=== PATIENT | female | born 1935 | race Caucasian/White ===

== ENCOUNTER 2017-03-12 02:03 | Emergency (ER) | payer MEDICAID, OTHER ==
[~2017-03-12] VITALS: Ht 175.3 cm; Wt 61.2 kg
[2017-03-12 03:09] LABS: Basophils # (auto) 0.1 uL; Basophils % (auto) 1.1 % (0.0-2.0); Eosinophils # (auto) 0.1 uL; Eosinophils % (auto) 1.2 % (0.0-7.0); Hematocrit 37.7 % (36.0-46.0); Hemoglobin 12.4 g/dL (12.2-16.2); Lymphocytes # (auto) 1.6 uL; Lymphocytes % (auto) 26.5 % (10.0-50.0); Mean Corpuscular Hemoglobin 30.3 pg (28.0-32.0); Mean Corpuscular Hgb Conc. 32.9 g/dL (32.0-36.0); Mean Corpuscular Volume 92.2 fL (80.0-100.0); Monocytes # (auto) 0.4 uL; Monocytes % (auto) 5.7 % (0.0-12.0); Neutrophils # (auto) 4.1 uL; Neutrophils % (auto) 65.5 % (37.0-80.0); Nucleated Red Blood Cells % 0.1 %; Platelet Count (auto) 275 10^3/uL (140-450); Red Blood Cells 4.09 10^6/uL (4.0-5.20); Red Cell Distribution Width 14.7 % (11.8-14.3); White Blood Cell 6.2 10^3/uL (4.4-10.8)
[2017-03-12 03:24] LABS: INR 0.92 (0.9-1.15)
[2017-03-12 03:30] LABS: Albumin 3.4 g/dL (3.4-5.0); BUN/Creatinine Ratio 19.2; Bilirubin, Total 0.2 mg/dL (0.2-1.0); Calcium 9.4 mg/dL (8.5-10.1); Magnesium 2.1 mg/dL (1.6-2.6); Potassium 4.1 mmol/L (3.5-5.1); Total Protein 7.6 g/dL (6.4-8.2)
[2017-03-12] MEDS ORDERED: LORazepam 2MG/ML-1ML VIAL ONE (06:00)
[2017-03-12] MEDS ORDERED: diphenhdrAMINE HCL 50 MG/1 ML VL IV ONE (06:15)
[2017-03-12] MEDS ORDERED: LORazepam 2MG/ML-1ML VIAL IV ONE (06:15)
[2017-03-12 07:35] LABS: Urine Bacteria None Seen /hpf (None Seen)
[2017-03-12 08:28] LABS: Urine Specific Gravity 1.009 (1.001-1.035)
[2017-03-12 08:29] LABS: Urine Blood 1+ /uL (Negative); Urine WBC 0-1 /hpf (0 - 5)
[2017-03-12 09:20] VITALS: BP 171/90
== END 2017-03-12 09:42 | disposition home or self-care (01) ==
LOC: EDBD 02:03 → ER 02:08
DX: S09.8XXA Other specified injuries of head, initial encounter (principal); S50.812A Abrasion of left forearm, initial encounter; S50.311A Abrasion of right elbow, initial encounter; I10 Essential (primary) hypertension; E78.5 Hyperlipidemia, unspecified; E11.9 Type 2 diabetes mellitus without complications; Z90.710 Acquired absence of both cervix and uterus; Z87.891 Personal history of nicotine dependence; W01.0XXA Fall on same level from slipping, tripping and stumbling without subsequent striking against object, initial encounter; Y93.01 Activity, walking, marching and hiking; Y92.89 Other specified places as the place of occurrence of the external cause; Y99.8 Other external cause status
CPT/HCPCS: 36415; 70450; 80053; 81001; 83735; 84484; 85025; 85610; 85730; 93005; 96374; 96375; 99285; J1200; J2060

== ENCOUNTER 2018-04-28 01:16 | Emergency (ER) | payer OTHER ==
[~2018-04-28] VITALS: Ht 177.8 cm; Wt 54.4 kg
[2018-04-28 01:45] VITALS: BP 160/82
[2018-04-28] MEDS ORDERED: HYDROcodone-ACET 10/325MG TAB PO ONE (02:15)
== END 2018-04-28 05:55 | disposition home or self-care (01) ==
LOC: EDBD 01:16 → ER 01:21
DX: S16.1XXA Strain of muscle, fascia and tendon at neck level, initial encounter (principal); S00.83XA Contusion of other part of head, initial encounter; S70.01XA Contusion of right hip, initial encounter; E11.9 Type 2 diabetes mellitus without complications; E78.5 Hyperlipidemia, unspecified; I10 Essential (primary) hypertension; Z90.710 Acquired absence of both cervix and uterus; Z87.891 Personal history of nicotine dependence; W18.39XA Other fall on same level, initial encounter; Y93.89 Activity, other specified; Y99.8 Other external cause status; Y92.89 Other specified places as the place of occurrence of the external cause
CPT/HCPCS: 70450; 70486; 72125; 73700

== ENCOUNTER 2018-05-20 04:34 | Inpatient (IN) | payer OTHER ==
[~2018-05-20] VITALS: Ht 165.1 cm; Wt 61.0 kg
[2018-05-20] MEDS ORDERED: SODIUM CHLORIDE 0.9% 500 ML IVB ONE (05:04)
[2018-05-20] MEDS ORDERED: HYDROmorphone HCL 2 MG/ML VL IV ONE (05:15)
[2018-05-20] MEDS ORDERED: ONDANSETRON HCL 4 MG/2 ML VIAL IV ONE ×2 (05:15→08:00)
[2018-05-20 07:00] LABS: Alanine Aminotransferase 23 U/L (13-56); Anion Gap 9 (5-15); BUN/Creatinine Ratio 20.8; Blood Urea Nitrogen 21 mg/dL (7-18); Calcium 8.1 mg/dL (8.5-10.1); Carbon Dioxide 22 mmol/L (21-32); Chloride 108 mmol/L (98-107); GFR African American 67 mL/min; GFR Non-African American 56 mL/min; Glucose 138 mg/dL (74-106); Sodium 139 mmol/L (136-145)
[2018-05-20 07:04] LABS: Alkaline Phosphatase 211 U/L (45-117); Aspartate Aminotransferase 21 U/L (15-37); Bilirubin, Total 0.2 mg/dL (0.2-1.0); Total Protein 6.7 g/dL (6.4-8.2)
[2018-05-20 07:07] LABS: INR 0.95 (0.9-1.15); Partial Thromboplastin Time 25.2 sec (23.78-33.04); Prothrombin Time 10.2 sec (9.27-12.13)
[2018-05-20 07:10] LABS: Basophils # (auto) 0 uL; Basophils % (auto) 0.7 % (0.0-2.0); Eosinophils # (auto) 0 uL; Eosinophils % (auto) 0.7 % (0.0-7.0); Hematocrit 35.5 % (36.0-46.0); Hemoglobin 11.4 g/dL (12.2-16.2); Lymphocytes # (auto) 1.3 uL; Lymphocytes % (auto) 22.1 % (10.0-50.0); Mean Corpuscular Hemoglobin 30.2 pg (28.0-32.0); Mean Corpuscular Hgb Conc. 32.1 g/dL (32.0-36.0); Mean Corpuscular Volume 94.1 fL (80.0-100.0); Monocytes # (auto) 0.4 uL; Monocytes % (auto) 7.5 % (0.0-12.0); Nucleated Red Blood Cells % 0.1 %; Platelet Count (auto) 268 10^3/uL (140-450); Red Blood Cells 3.77 10^6/uL (4.0-5.20); Red Cell Distribution Width 13.4 % (11.8-14.3); White Blood Cell 5.7 10^3/uL (4.4-10.8)
[2018-05-20] MEDS ORDERED: MORPHINE SULFATE 4 MG/ML SYR/VIAL IV ONE (08:00)
[2018-05-20] MEDS ORDERED: LORazepam 2MG/ML-1ML VIAL IV ONE (08:45)
[2018-05-20 08:58] LABS: Urine Bacteria NONE SEEN /hpf (None Seen); Urine Blood Negative /uL (Negative); Urine Specific Gravity 1.015 (1.001-1.035); Urine WBC 1 /hpf (0 - 5)
[2018-05-20] MEDS ORDERED: MORPHINE SULF INJ 2 MG/ML SYRINGE 1ML IV PRN (13:30)
[2018-05-20] MEDS ORDERED: ONDANSETRON HCL 4 MG/2 ML VIAL IV PRN (13:30)
[2018-05-20] MEDS ORDERED: NITROGLYCERIN 0.4 MG SL TAB SL PRN (13:30)
[2018-05-20] MEDS ORDERED: ACETAMINOPHEN 500 MG TAB PO PRN (13:30)
[2018-05-20] MEDS: MORPHINE SULF INJ 2 MG/ML SYRINGE 1ML IV PRN (17:29)
[2018-05-20] MEDS: FERROUS SULFATE 325 MG TAB PO SCH (18:49)
[2018-05-20 19:21] VITALS: BP 128/45
--- NOTE | 2018-05-20 19:25 | NUR ---
MS admit from ER PER [facility] admitted to tele/MS after SBAR received. Patient oriented to Merna Martinez, primary RN, unit, room, bed, and unit policies regarding patient care and visiting hours, PATIENT HAS DEMENTIA AND ALZHEIMER'S AND DOES NOT COMPREHEND BUT DOES FOLLOW COMMANDS. PATIENT IS ALERT AND ORIENTED TO SELF. DAUGHTER WHO IS AT BEDSIDE IS ASSISTING WITH ADMISSION. DAUGHTER SOLEDAD ROBLES STATES THAT SHE IS POA FOR PATIENT. Patient weighed by bed scale and encouraged to call if they need something. All questions and concerns addressed, patient verbalized understanding. NO S/SX OF DISTRESS OR SOB.
[2018-05-20 19:30] VITALS: BP 128/45
--- NOTE | 2018-05-20 20:00 | NUR ---
NURSE METAL TREATER NATHALIE TO STAY WITH PATIENT OVER NIGHT FOR SAFETY PRECAUTIONS. PATIENT IS PULLING AT MONTE AND DRESSING AT RIGHT ARM.
[2018-05-20] MEDS: HYDROcodone-ACET 5/325MG TAB PO PRN (20:25)
--- NOTE | 2018-05-20 21:40 | NUR ---
[facility] SWAB SENT TO LAB
[2018-05-20] MEDS: BRIMONIDINE 0.2% OPTH Soln 5ml EACHEYE SCH ×2 (21:55→22:31)
--- NOTE | 2018-05-20 21:56 | NUR ---
WOUND CARE RIGHT UPPER ARM SKIN TEAR PRESENT ON ADMISSION. PHOTOS TAKEN. WOUND CARE FORM SIGNED, DATED AND CHARTED IN WOUND CARE FILE.
[2018-05-20] MEDS ORDERED: ATORVASTATIN 20 MG TAB PO SCH (22:00)
[2018-05-20] MEDS ORDERED: DONEPEZIL HYDROCHLORIDE 5 MG TAB PO SCH (22:00)
[2018-05-21 05:28] VITALS: BP 143/71
[2018-05-21] MEDS: MORPHINE SULF INJ 2 MG/ML SYRINGE 1ML IV PRN ×3 (05:45→16:38)
[2018-05-21 07:27] LABS: Basophils # (auto) 0 uL; Basophils % (auto) 0.3 % (0.0-2.0); Calcium 8.5 mg/dL (8.5-10.1); Eosinophils # (auto) 0 uL; Eosinophils % (auto) 0.2 % (0.0-7.0); Hemoglobin 10.2 g/dL (12.2-16.2); Lymphocytes # (auto) 0.8 uL; Lymphocytes % (auto) 11.3 % (10.0-50.0); Magnesium 1.8 mg/dL (1.6-2.6); Mean Corpuscular Hemoglobin 31.5 pg (28.0-32.0); Mean Corpuscular Hgb Conc. 33.9 g/dL (32.0-36.0); Monocytes # (auto) 0.5 uL; Monocytes % (auto) 7.4 % (0.0-12.0); Neutrophils # (auto) 5.6 uL; Neutrophils % (auto) 80.8 % (37.0-80.0); Nucleated Red Blood Cells % 0.1 %; Platelet Count (auto) 258 10^3/uL (140-450); Red Blood Cells 3.23 10^6/uL (4.0-5.20); Red Cell Distribution Width 13.6 % (11.8-14.3); White Blood Cell 6.9 10^3/uL (4.4-10.8)
[2018-05-21 07:32] LABS: INR 0.95 (0.9-1.15); Partial Thromboplastin Time 27.2 sec (23.78-33.04); Prothrombin Time 10.2 sec (9.27-12.13)
--- NOTE | 2018-05-21 07:45 | NUR ---
OPENING NOTE OBSERVED PT SITTING UP IN BED. NO SOB/DISTRESS NOTED. PATIENT ALERT TO SELF ONLY, CONFUSED. NO OBSERVABLE S/S OF PAIN AT THIS TIME. SITTER AT BEDSIDE. FALL PRECAUTIONS IN PLACE. CALL LIGHT WITHIN REACH. WILL CONTINUE TO MONITOR Q1H AND PRN. CONTINUE PT CARE.
[2018-05-21] MEDS: FERROUS SULFATE 325 MG TAB PO SCH (08:00)
[2018-05-21 08:43] VITALS: BP 150/75
[2018-05-21] MEDS: HYDROcodone-ACET 5/325MG TAB PO PRN (08:50)
--- NOTE | 2018-05-21 09:13 | NUR ---
PROCEDURAL CONSENTS PATIENTS DAUGHTER, SOLEDAD AT BEDSIDE. SOLEDAD STATING SHE WAS NOT PREVIOUSLY AWARE THAT PROCEDURE TO TAKE PLACE TODAY. ASKING TO BE GIVEN UPDATE IF ANYTHING CHANGES. WILL CARRY OUT. SOLEDAD STATING THAT SHE HAS NO FURTHER QUESTIONS IN REGARDS TO PLANNED SURGERY FOR HER MOTHER. CONSENTS SIGNED AT THIS TIME AND PLACED IN CHART. SOLEDAD STATING SHE HAS POA AND ADVANCE DIRECTIVE. INFORMED HER RECORDS NOT ON FILE, ADVISED TO BRING IN DAVID. VERBALIZED UNDERSTANDING.
[2018-05-21] MEDS ORDERED: PANTOPRAZOLE 40 MG/10 ML VIAL IV SCH (10:00)
[2018-05-21] MEDS ORDERED: CHOLECALCIFEROL (VITD3) 1,000 UNIT TAB PO SCH (10:00)
[2018-05-21] MEDS ORDERED: LOSARTAN POTASSIUM 25 MG TAB PO SCH (10:00)
[2018-05-21] MEDS: BRIMONIDINE 0.2% OPTH Soln 5ml EACHEYE SCH (10:41)
--- NOTE | 2018-05-21 10:50 | NUR ---
WOUND CARE NOTE: IN TO SEE PATIENT AT THIS TIME PER WOUND CARE CONSULT REQUEST. PATIENT WILL BE TRANSFERRED TO [facility] THIS PM PER MD ORDER. SHE WAS NOTED UPON ADMIT TO HAVE A SKIN TEAR TO THE RIGHT UPPER ARM MEASURING 1 X 3 CM. APPLIED THERAHONEY, OPTIFOAM GENTLE DRESSING. PATIENT TURNED TO RIGHT SIDE. SHE HAS RED BUT BLANCHABLE RED SACRAL SKIN, PINK, BLANCHABLE BILATERAL HEELS. APPLIED MELVA FOAM BOOT TO RIGHT FOOT/HEEL D/T IMMOBILITY OF RLE FROM RIGHT HIP FRACTURE. PLACED SKIN/WOUND CARE PLAN IN PLACE. WOUND CARE TEAM WILL CONTINUE TO MONITOR PATIENT TILL DISCHARGE/TRANSFER. Addendum: 05/21/18 at 1520 by Griselda Crawford RN Amended: Links added.
--- NOTE | 2018-05-21 10:55 | NUR ---
WOUND CARE BASE LOADER, YOLIE, IN TO SEE PATIENT.
--- NOTE | 2018-05-21 11:13 | NUR ---
AT BEDSIDE DR. CELESTE AT BEDSIDE. STATING PT TO BE TRANSFERRED TO [facility]. MD SPOKE TO PATIENTS DAUGHTER, ÁLVARO, TO INFORM OF TRANSFER. MD ATTEMPTED TO CONTACT DR. MILLER, BUT NOT SUCCESSFUL.
--- NOTE | 2018-05-21 11:35 | NUR ---
PRE-OP PER DR. MCCAULEY REQUEST, CALLED PRE-OP TO INFORM OF PENDING TRANSFER. SPOKE TO RILEY DOUGLAS.
[2018-05-21 11:51] VITALS: BP 150/75
[2018-05-21 13:00] VITALS: BP 109/57
--- NOTE | 2018-05-21 14:27 | NUR ---
ORDER AND CLINICALS FAXED TO [facility] REQUESTING TRANSFER TO [facility]
--- NOTE | 2018-05-21 15:19 | NUR ---
PATIENT HAS BEEN ACCEPTED AT [facility] ROOM [address]A. PHONE NUMBER FOR REPORT IS [phone]. [facility] HAS BEEN SCHEDULED FOR 1700 FOR TRANSPORT. AUTH FOR [facility] [id number]
--- NOTE | 2018-05-21 15:54 | NUR ---
REPORT REPORT GIVEN TO KAITLYN WAGONER. ALL QUESTIONS ANSWERED. NUMBER PROVIDED FOR CALL BACK IF NEEDED.
--- NOTE | 2018-05-21 16:00 | NUR ---
FAMILY CALLED PATIENTS DAUGHTERSOLEDAD, TO INFORM OF ROOM NUMBER AND PENDING COW TESTER. VERBALIZED UNDERSTANDING.
[2018-05-21 17:00] VITALS: BP 133/58
--- NOTE | 2018-05-21 17:11 | NUR ---
Discharge instructions given as ordered. Encourage to follow up with PMD as instructed. All questions and concerns addressed. Patient unable to verbalize understanding. Medication reconciliation form completed and copy given to [facility]. IV and miller catheter continued per MD order. Patient taken off unit via gurney with all personal belongings, accompanied by [facility] staff. No distress noted at time of departure. Addendum: 05/21/18 at 1716 by Janell Lyon RN RN DC PAPERWORK AND IMAGE TRANSFER/CD PROVIDED FOR [facility] STAFF IN PACKET.
== END 2018-05-21 17:11 | disposition short-term general hospital (02) | DRG 543 ==
LOC: ER 04:34 → EDBD 04:34 → OVERFLOW 13:30 → WEST WING 20:16
PROVIDERS: ADMIT Nurse Practitioner Acute Care; ATTEND Internal Medicine Geriatric Medicine
DX: M80.051A Age-related osteoporosis with current pathological fracture, right femur, initial encounter for fracture (principal); E44.0 Moderate protein-calorie malnutrition; Z68.22 Body mass index [BMI] 22.0-22.9, adult; D64.9 Anemia, unspecified; E11.9 Type 2 diabetes mellitus without complications; E78.5 Hyperlipidemia, unspecified; F02.80 Dementia in other diseases classified elsewhere, unspecified severity, without behavioral disturbance, psychotic disturbance, mood disturbance, and anxiety; W18.30XA Fall on same level, unspecified, initial encounter; G30.9 Alzheimer's disease, unspecified; I10 Essential (primary) hypertension; M19.90 Unspecified osteoarthritis, unspecified site; Z83.3 Family history of diabetes mellitus; Z87.891 Personal history of nicotine dependence; Z90.710 Acquired absence of both cervix and uterus; Y93.89 Activity, other specified; Y92.89 Other specified places as the place of occurrence of the external cause
CPT/HCPCS: 36415; 71045; 73502; 80048; 80053; 80061; 81001; 83036; 83735; 84443; 84484; 85025; 85610; 85730; 86850; 86900; 86901; 87081; 93005; 93306; 94761; 96361; 96374; 96375; C9113; G0378; J2405